=== PATIENT | female | born 1990 | race Two or more races ===

== ENCOUNTER 2021-04-21 22:34 | Emergency (ER) | payer OTHER ==
[~2021-04-21] VITALS: Ht 165.1 cm; Wt 54.4 kg
[~2021-04-21 22:34] MED LIST: AMOXICILLIN500 MG PO; BIAXIN500 MG PO; OMEPRAZOLE PO; SODIUM BICARBONATE PO; ZANTAC150 M1 PO
[2021-04-22] MEDS ORDERED: ZOFRAN8 MG PO (05:01)
[2021-04-22] MEDS ORDERED: PEPCID40 MG PO ×2 (05:01→05:02)
== END 2021-04-22 05:05 | disposition home or self-care (01) ==
LOC: ER 22:34
DX: O21.0 Mild hyperemesis gravidarum (principal); Z34.01 Encounter for supervision of normal first pregnancy, first trimester

== ENCOUNTER 2021-05-24 14:16 | Emergency (ER) | payer OTHER ==
[~2021-05-24] VITALS: Ht 162.6 cm; Wt 65.8 kg
[~2021-05-24 14:16] MED LIST changes: +PEPCID40 MG PO; +ZOFRAN8 MG PO
[2021-05-24] MEDS ORDERED: DICLEGIS DR 101 EACH PO (14:26)
[2021-05-24] MEDS ORDERED: FOLIC ACID0.8 M1 (14:26)
[2021-05-24] MEDS ORDERED: ZOFRAN8 MG PO (17:16)
[2021-05-24] MEDS ORDERED: PEPCID AC20 MG PO (17:16)
== END 2021-05-24 17:24 | disposition home or self-care (01) ==
LOC: ER 14:16
DX: O21.0 Mild hyperemesis gravidarum (principal); O98.511 Other viral diseases complicating pregnancy, first trimester; U07.1 COVID-19; Z3A.10 10 weeks gestation of pregnancy

== ENCOUNTER 2021-11-17 13:30 | Inpatient (IN) | payer OTHER ==
[~2021-11-17] VITALS: Ht 162.6 cm; Wt 80.7 kg
[~2021-11-17 13:30] MED LIST changes: +DICLEGIS DR 101 EACH PO; +FOLIC ACID0.8 M1; +PEPCID AC20 MG PO
[2021-11-22] MEDS ORDERED: PRENATAL CAPLE1 EAC1 PO (11:24)
[2021-11-22] MEDS ORDERED: VALTREX1000 MG PO (11:24)
== END 2021-11-24 14:53 | disposition home or self-care (01) | DRG 807 ==
LOC: OB/GYN 11-22 10:03 → LDR 11-22 10:03 → OB/GYN 11-22 21:54 → LDR 12-01 13:30
PROVIDERS: ADMIT Obstetrics & Gynecology; ATTEND Obstetrics & Gynecology
PROC: 10E0XZZ Delivery of Products of Conception, External Approach (ICD-10-PCS; principal; 2021-11-22)
PROC: 4A1HXCZ Monitoring of Products of Conception, Cardiac Rate, External Approach (ICD-10-PCS; 2021-11-22)
DX: O80 Encounter for full-term uncomplicated delivery (principal); Z37.0 Single live birth; Z3A.38 38 weeks gestation of pregnancy; Z20.822 Contact with and (suspected) exposure to COVID-19

== ENCOUNTER 2021-11-21 10:00 | Outpatient (CLI) | payer OTHER ==
[~2021-11-21] VITALS: Ht 162.6 cm; Wt 80.7 kg
[2021-11-22] MEDS ORDERED: PRENATAL CAPLE1 EAC1 PO (11:24)
[2021-11-22] MEDS ORDERED: VALTREX1000 MG PO (11:24)
== END 2021-11-21 10:25 | disposition home or self-care (01) ==
LOC: OBS/DEL 10:00
PROVIDERS: ATTEND Obstetrics & Gynecology
DX: O47.1 False labor at or after 37 completed weeks of gestation (principal); Z3A.38 38 weeks gestation of pregnancy

== ENCOUNTER 2023-12-11 16:09 | Outpatient (CLI) | payer OTHER ==
[~2023-12-11 16:09] MED LIST changes: +PRENATAL CAPLE1 EAC1 PO; +VALTREX1000 MG PO; +ZOFRAN8 MG
== END 2023-12-11 17:58 | disposition home or self-care (01) ==
LOC: NST 16:09
PROVIDERS: ATTEND Obstetrics & Gynecology
DX: Z34.82 Encounter for supervision of other normal pregnancy, second trimester (principal)

== ENCOUNTER 2024-03-18 12:45 | Inpatient (IN) | payer OTHER ==
[~2024-03-18] VITALS: Ht 162.6 cm; Wt 79.4 kg
[2024-03-22] VITALS (10 sets, daily range): BP systolic 103–132; BP diastolic 52–87
[2024-03-22 07:03] LABS: HEMATOCRIT 34.4 % (36.0-45.00); HEMOGLOBIN 11.6 g/dL (12.0-15.00); MEAN CELL VOLUME 74.2 fL (80.00-100.00); MEAN CORPUSCULAR HGB CONC 33.7 g/dl (32.0-36.0); PLATELET COUNT 232 K/uL (150-450); RED BLOOD COUNT 4.63 M/uL (4.00-6.00); RED CELL DISTRIBUTION WIDTH 14.3 % (11.5-14.5)
[2024-03-22] MEDS ORDERED: RINGERS SOLUTION,LACTATED 1,000 ML IV SCH (07:15)
[2024-03-22] MEDS ORDERED: MORPHINE SULFATE 4 MG/ML CARTRIDGE IV PRN (07:15)
[2024-03-22 07:46] LABS: INR < 0.93; PARTIAL THROMBOPLASTIN TIME 26.5 SECONDS (22.0-34.0); PROTHROMBIN TIME 10.1 SECONDS (9.0-11.5)
[2024-03-22] MEDS ORDERED: OXYTOCIN 500 ML IV ONE (08:00)
[2024-03-22] MEDS ORDERED: ONDANSETRON HCL 2 MG/ML VIAL IV ONE (10:30)
[2024-03-22] MEDS ORDERED: LIDOCAINE HCL 1% 10ML VIAL IJ ONE (12:25)
[2024-03-22] MEDS ORDERED: OXYTOCIN 1,000 ML IV SCH (12:45)
[2024-03-22] MEDS ORDERED: CHLORHEXIDINE GLUCONATE 120 ML BOTTLE TP SCH (12:45)
[2024-03-22] MEDS ORDERED: IBUprofen 400 MG TABLET PO PRN (12:45)
[2024-03-22] MEDS ORDERED: ERYTHROMYCIN BASE OPHT 1GM EACH TUBE OP ONE (16:00)
[2024-03-23 00:36] VITALS: BP 110/60
[2024-03-23 07:58] LABS: HEMATOCRIT 30.7 % (36.0-45.00); HEMOGLOBIN 10.1 g/dL (12.0-15.00); MEAN CELL VOLUME 75.5 fL (80.00-100.00); MEAN CORPUSCULAR HEMOGLOBIN 24.8 pg (27.00-32.0); MEAN CORPUSCULAR HGB CONC 32.9 g/dl (32.0-36.0); PLATELET COUNT 200 K/uL (150-450); RED BLOOD COUNT 4.07 M/uL (4.00-6.00); RED CELL DISTRIBUTION WIDTH 13.9 % (11.5-14.5)
[2024-03-23 08:24] VITALS: BP 131/83
[2024-03-24 00:02] VITALS: BP 107/67
[2024-03-24 11:55] VITALS: BP 122/83
== END 2024-03-24 15:43 | disposition home or self-care (01) | DRG 807 ==
LOC: LDR 03-22 05:43 → OB/GYN 03-22 05:43
PROVIDERS: Obstetrics & Gynecology; ADMIT Obstetrics & Gynecology; ATTEND Obstetrics & Gynecology
PROC: 10E0XZZ Delivery of Products of Conception, External Approach (ICD-10-PCS; principal; 2024-03-22)
PROC: 0KQM0ZZ Repair Perineum Muscle, Open Approach (ICD-10-PCS; 2024-03-22)
PROC: 4A1HXCZ Monitoring of Products of Conception, Cardiac Rate, External Approach (ICD-10-PCS; 2024-03-22)
DX: O70.1 Second degree perineal laceration during delivery (principal); Z37.0 Single live birth; Z3A.38 38 weeks gestation of pregnancy; Z20.822 Contact with and (suspected) exposure to COVID-19

== ENCOUNTER 2024-03-21 11:22 | Outpatient (CLI) | payer OTHER ==
[2024-03-21 11:51] VITALS: BP 120/80
== END 2024-03-21 12:00 | disposition home or self-care (01) ==
LOC: NST 11:22
PROVIDERS: ATTEND Obstetrics & Gynecology
DX: Z34.83 Encounter for supervision of other normal pregnancy, third trimester (principal)